=== PATIENT | male | born 1965 | race Caucasian/White ===

== ENCOUNTER → 2023-02-16 10:37 | Outpatient (CLI) | payer OTHER, SELFPAY ==
--- NOTE | ~2023-02-16 | MR_ITS ---
EXAMINATION: MR knee RT wo con DATE: 02/16/2023 11:07 INDICATION: Medial right knee pain. TECHNIQUE: Magnetic resonance imaging (MRI) of the right knee was performed without intravenous contr ast. Sequences included axial PD-weighted FS FSE, coronal PD-weighted FSE and PD-weighted FS FSE, sag ittal PD-weighted FSE, and sagittal T2-weighted FS FSE. COMPARISON: None. FINDINGS: Medial compartment: Medial meniscus is normal. Medial compartment cartilage is normal. Lateral compartment: Lateral meniscus is normal. There is cartilage surface irregularity of tibial condyle. Femoral cartil age is normal. Patellofemoral compartment: Patellar cartilage is normal. Trochlear cartilage is normal. Ligaments and tendons: The anterior and posterior cruciate ligaments are normal. Medial collateral ligament and lateral kizzy ateral ligament complex are normal. There is mild patellar tendinopathy. Fluid: There is no knee joint effusion. There is mild pes anserinus bursitis. There is edema of suprapatella r fat pad. IMPRESSION: 1. Mild chondrosis of lateral tibial condyle. 2. Mild pes anserinus bursitis. Reviewed, dictated and finalized at location E.
== END ==
PROVIDERS: PCP Physician Assistant; Visit Provider Physician Assistant
DX: M94.261 Chondromalacia, right knee (principal); M71.561 Other bursitis, not elsewhere classified, right knee; G89.29 Other chronic pain
CPT/HCPCS: 73721

== ENCOUNTER 2024-10-18 08:21 | Outpatient (CLI) | payer OTHER, SELFPAY ==
--- NOTE | ~2024-10-18 | MR_ITS ---
MRI of the left calf CLINICAL HISTORY: Pain and swelling TECHNIQUE: T1-weighted and STIR images were performed in the axial, coronal, and sagittal planes. FINDINGS: Bone marrow signals are unremarkable. No fracture or bone marrow edema seen. No evidence fo r osteomyelitis. No periosteal reaction seen. Visualized joint spaces are intact. No evidence for medial tibial stress syndrome. Visualized musculature is unremarkable. No muscle atro phy or edema. Visualized tendons are intact. Subcutaneous soft tissues are unremarkable. No soft tiss ue mass or fluid collection seen. IMPRESSION: Unremarkable exam. Reviewed, dictated and finalized at location . IMPRESSION: Unremarkable exam.
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
--- OUTSIDE RECORDS SUMMARY | 2024-10-18 08:26 | XMS_ITS | Encounter Summary ---
Author Organization [facility] Healthcare Address [address] [place] [address] Care Team Providers Care Home Designer Name Role Phone LUIS Rivera Jr., Tera Acuña Primary Care Provide r Cuco Fenton MD Unavailable Willie Deal MD Unavailable [phone] Reason for Visit * Reason Onset Date Comments Authorization/Certification 10/17/2024 Encounter Details Date Type Department Care Team (Late st Contact Info) Description 10/17/2024 Telephone [facility] Medical Group Primary Care [address] [phone] Tera Rivera Jr., PA [address] [address] Authorization/Certifica tion Social History Tobacco Use Types Packs/Day Years Used Date Smoking Tobacco: Never Smokeless Tobacco: Never AUDIT-C Answer Date Recorded Q1: How often [...] on file 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 documented in this encounter Plan of Treatment Not on file documented as of this encounter Visit Diagnoses Not on filedocumented in this encounter Care Teams Home Designer Relationship Specialty Start Date End Date Tera Rivera Jr., PA [address] [place] [address] PCP - General Family Medicine 06/04/19 Cuco Fenton MD [address] [facility] [address] Consulting Physician Pain Management 01/26/21 Willie Deal MD [address] [place] [address] Consulting Physician Family Medicine 11/03/21 documented as of this encounter
--- OUTSIDE RECORDS SUMMARY | 2024-10-18 08:26 | XMS_ITS | Encounter Summary ---
Author Organization [facility] Healthcare Address [address] [place] [address] Care Team Providers Care Special Day Class Teacher Name Role Phone LUIS Rivera Jr., Tera Acuña Primary Care Provide r Cuco Fenton MD Unavailable Willie Deal MD Unavailable Reason for Visit * Reason Onset Date Comments Medical Question/Miscellaneous 10/15/2024 Encounter Details Date Type Department Care Team ([facility] st Contact Info) Description 10/15/2024 Telephone [facility] Medical Group Primary Care [address] [phone] Tera Rivera Jr., PA [address] [address] Medical Question/Miscellaneous Social History Tobacco Use Types Packs/Day Years [...] file Legal Sex Male 9:43 AM 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 Yes-Action Needed * Telephone Encounter - Marcus Nelson - 10/15/2024 4:16 PM CDT Medical Question/Miscellaneous Caller???s Concern: Noemy with [facility] called regarding status for MRI. ASSISTANT TEACHER PRIMARY informed that its pending. Does message need to be routed? No documented in this encounter Plan of Treatment Not on file documented as of this encounter Visit Diagnoses Not on filedocumented in this encounter Care Teams Special Day Class Teacher Relationship Specialty Start Date End Date Tera Rivera Jr., PA [address] [place] [address] PCP - General Family Medicine 06/04/19 Cuco Fenton MD [address] [facility] [address] Consulting Physician Pain Management 01/26/21 Willie Deal MD [address] [place] [address] Consulting Physician Family Medicine 11/03/21 documented as of this encounter
--- OUTSIDE RECORDS SUMMARY | 2024-10-18 08:26 | XMS_ITS | Encounter Summary ---
Author Organization [facility] Healthcare Address [address] [place] [address] Care Team Providers Care Road Engineer Freight Name Role Phone LUIS Rivera Jr., Tera Acuña Primary Care Provide r Cuco Fenton MD Unavailable Willie Deal MD Unavailable [phone] Encounter Details Date Type Department Care Team (Late st Contact Info) Description 10/11/2024 Results Follow-Up [facility] Medical Group Primary Care [address] [phone] Tera Rivera Jr., PA [facility] [address] [place] [address] XR Tibia Fibula Left 2 Vw Social History Tobacco Use Types Packs/Day Years [...] on file 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 Patient states that he spoke with [facility] regarding the xray. documented in this encounter Plan of Treatment Not on file documented as of this encounter Visit Diagnoses Not on filedocumented in this encounter Care Teams Road Engineer Freight Relationship Specialty Start Date End Date Tera Rivera Jr., PA [address] [place] [address] PCP - General Family Medicine 06/04/19 Cuco Fenton MD [address] [facility] [address] Consulting Physician Pain Management 01/26/21 Willie Deal MD [address] [place] [address] Consulting Physician Family Medicine 11/03/21 documented as of this encounter
--- OUTSIDE RECORDS SUMMARY | 2024-10-18 08:26 | XMS_ITS | Encounter Summary ---
Author Organization [facility] Healthcare Address [address] [place] [address] Care Team Providers Care Die Attacher Name Role Phone LUIS Rivera Jr., Tera Acuña Primary Care Provide r Cuco Fenton MD Unavailable Willie Deal MD Unavailable Reason for Visit * Reason Onset Date Comments Referral Request 10/16/2024 Encounter Details Date Type Department Care Team ([facility] st Contact Info) Description 10/16/2024 Telephone [facility] Primary Care [address] [phone] Tera Rivera Jr., PA [facility] [address] Referral Request Social History Tobacco Use Types Packs/Day Years [...] on file 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 * Telephone Encounter - Latha Han - 10/17/2024 9:15 AM CDT Authorized and faxed * Telephone Encounter - Claudia Ievrson - 10/16/2024 1:58 PM CDT Referral Provider Name: [facility] Specialty: Physical Therapy Address: [address] [place] [address], Zip: [place] [address] Diagnosis Code/Symptom/Reason Patient is being seen: M79.662, M79.89 Date of Appointment: 10/17/2024 at 8:40 AM NPI#: [id number] Tax ID#: [id number] Is insurance in chart up to date? Magalis M[place]e Additional Comments: Caller requesting a [employer] Insurance Referral. Caller stated if can't get it by tomorrow 10/17/2024 no problem as long as it is back dated for 10/17/2024. Does message need to be routed? Yes-Action Needed documented in this encounter Plan of Treatment Not on file documented as of this encounter Visit Diagnoses Not on filedocumented in this encounter Care Teams Die Attacher Relationship Specialty Start Date End Date Tera Rivera Jr., PA [address] [place] [phone] PCP - General Family Medicine 06/04/19 Cuco Fenton MD [address] [facility] [address] Consulting Physician Pain Management 01/26/21 Willie Deal MD [address] [address] Consulting Physician Family Medicine 11/03/21 documented as of this encounter
--- OUTSIDE RECORDS SUMMARY | 2024-10-18 08:26 | XMS_ITS | Continuity of Care Document ---
Author Name [facility] Organization [facility] Care Team Providers Care Wheel Alignment Technician Name Role Phone [facility] Unavailable Unavailable Immunizations Combined list of available immunizations from the Department of Defense and [facility] facilities. Immunization Series Date Given Administered By Site Reaction Lot Number CVX Code Drug International Nurse Status Comments Source COVID-19 (Zvooq), MRNA, LNP-S, PF, 30 MCG/0.3 ML DOSE 2 2020 208 complet ed PFR; [id number]; 1 [facility] COVID-19 (Zvooq), MRNA, LNP-S, PF, 30 MCG/0.3 ML DOSE 1 2020 208 complet ed PFR; [id number]; 1 [facility] Encounters Combined list of: 1) Encounters from Department of Veterans Affairs facilities going backup to the last 18 months, not all VA inpatient encounters are included; 2) Encounters from the [facility] of [facility] facilities going backup to 280 months. Location Location Details Encounter Type Encounter Number Reason For Visit Attending Provider ADM Date DC Date Status Disposition Source [facility] Outpatient Encounter [id number] 09/14 [facility]
--- OUTSIDE RECORDS SUMMARY | 2024-10-18 08:26 | XMS_ITS | Clinical Summary ---
Author Organization [facility] Address [address] [place] [address] Care Team Providers Care Acting Manager Name Role Phone Tera Rivera Primary Care Provider [phone] Sultan Ricco Romero MD Unavailable [phone] Allergies No known active allergies Medications valsartan-hydroCHL OROthiazide (DIOVAN-HCT) 80-12.5 MG tabletIndications: Essential (primary) hypertension Take 1 tablet by mouth daily. 11/11/19 22 Active RABEprazole EC (ACIPHEX) 20 MG tablet Take 20 mg by mouth daily. 04/13/20 21 Active meloxicam (MOBIC) 15 MG tablet Take 15 mg by mouth daily. 11/12/19 22 Active rizatriptan (MAXALT-MERCHANDISING EXECUTION ASSOCIATE) 10 MG disintegrating tablet DISSOLVE ONE TABLET ON THE TONGUE NEEDED FOR HEADACHE. MAY REPEAT IN 2 HOURS IF UNRESOLVED. MAX 3 TABLETS IN 24 HOURS 07/18/19 22 Active SUMAtriptan (IMITREX) 50 MG tablet Take 1 tablet by mouth as needed. 10/04/19 22 Active rosuvastatin (CRESTOR) 20 MG tabletIndications: Coronary artery disease involving [place] coronary artery of [place] heart without angina pectoris,Hyperlipi demia, mixed Take 1 tablet (20 mg total) by mouth nightly at bedtime. 90 tablet 4 11/25/19 22 Active isosorbide mononitrate ER (IMDUR) 30 MG 24 hr tabletIndications: Chest pain, unspecified type TAKE 1 TABLET(30 MG) BY MOUTH DAILY. PLEASE MAKE AN APPOINTMENT FOR FUTURE REFILLS 30 tablet 03/24/20 22 Active Active Problems Problem Noted Date Diagnosed Date Exertional dyspnea 08/26/2021 Precordial chest pain 08/26/2021 Pure hypercholesterolemia 08/26/2021 Family History Medical History Relation Comments Colon Cancer Father Heart Disease Mother Relation Status Comments Father (Age 52) Mother (Age 63) Social History Tobacco Use Types Packs/Day Years Used Date Smoking Tobacco: Never Smokeless Tobacco: Never Alcohol Use Standard Drinks/Week Comments Yes 0 (1 standard drink = 0.6 oz pur e alcohol) beer Sex and Gender Information Value Date Recorded Sex Assigned at Not on file Legal Sex Male 7:01 PM CDT Gender Identity Not on file Sexual Orientation Not on file Last Filed Vital Signs Vital Sign Reading Time Taken Comments Blood Pressure 130/78 11/24/2021 1:02 PM CDT Pulse 71 11/24/2021 1:02 PM CDT Temperature - - Respiratory Rate - - Oxygen Saturation 97% 11/24/2021 1:02 PM CDT Inhaled Oxygen Concentration - - Weight 88.2 kg (194 lb 6.4 oz) 11/24/2021 1:02 P M CDT Height 182.9 cm (6') 11/24/2021 1:02 PM CDT Body Mass Index 26.37 11/24/2021 1:02 PM CDT Plan of Treatment Health Maintenance Due Date Last Done Comments Colorectal Cancer Screening Colonoscopy (10 Years) 1966 Annual Physical 1969 Hepatitis C 1984 DTaP, Tdap and Td Vaccines ( 1 - Tdap) 1985 Hepatitis B Vaccines (1 of 3 - 19+ 3-dose series) 1985 Pneumococcal Vaccine: 50+ Years (1 of 1 - PCV) 2016 Zoster Vaccines (1 of 2) 2016 COVID-19 Vaccine (2023-2 5 season) 2023 04/13/2021, 07/15/2020, 06/25/2020 Meningococcal B Vaccine Aged Out No l onger eligible based on patient's age to complete this topic Meningococcal Vaccine Aged Out No scotty jerome eligible based on patient's age to complete this topic RSV Immunizations Under 20 Months Aged Out No longer eligible b ased on patient's age to complete this topic Insurance Care Teams Acting Manager Relationship Specialty Start Date End Date Tera Rivera PA [address] [place] [phone] PCP - General 10/19/16 Sultan Ricco Romero MD [address] [facility] [address] [place] [address] [address] CARDIOVASCULAR DISEASE 11/05/21
--- OUTSIDE RECORDS SUMMARY | 2024-10-18 08:26 | XMS_ITS | Clinical Summary ---
Author Organization [address] Address [address] [place] [phone] Care Team Providers Care Upper Doubler Name Role Phone LUIS Rivera Jr., Robert James Primary Care Provide r Cuco Fenton MD Unavailable Willie Deal MD Unavailable Allergies No known active allergies Medications SUMAtriptan [...] needed for muscle spasms 90 tablet 2 05/05/20 25 025 Active rizatriptan AGRICULTURE MANAGER (MAXALT-AGRICULTURE MANAGER) 10 mg disintegrating tabletIndications :Chronic nonintractable headache, [...] total) by mouth daily 025 Discontinued rizatriptan AGRICULTURE MANAGER (MAXALT-AGRICULTURE MANAGER) 10 mg disintegrating tabletIndications :Chronic nonintractable headache, [...] knee 04/22/2011 11/27/2020 Knee pain 04/21/2011 11/27/2020 Encounters Date Type Department Care Team Description 10/17/2024 Telephone [facility] Primary Care [address] [place] [phone] Tera Rivera Jr., PA Authorization/Certi fication 10/16/2024 Telephone [facility] Primary Care [address] [place] [phone] Tera Rivera Jr., PA Referral Request 10/15/2024 Telephone [facility] Primary Care [address] [place] [phone] Tera Rivera Jr., PA Medical Question/Miscellane ous 10/11/2024 Results Follow-Up [facility] [address] [place] [phone] Tera Rivera Jr., PA XR Tibia Fibula Left 2 Vw 10/11/2024 Orders Only [facility] Primary Care [address] [place] [phone] Tera Rivera Jr., PA Pain and swelling of left lower leg (Primary Dx) 10/04/2024 2:45 PM CDT - 10/04/2024 11:59 PM CDT Hospital Encounter [facility] MOB 1 DIAG IMG [address] [place] [address] Pain and swelling of left lower leg Discharge Disposition: Discharge to home or self care 10/04/2024 2:30 PM CDT Office Visit [facility] [address] [place] [address] [address] [place] [phone] Tera Rivera Jr., PA Pain and swelling of left lower leg (Primary Dx) 08/20/2024 Orders Only [facility] Primary Care [address] [place] [address] [address] [place] [phone] Tera Rivera Jr., PA Chronic bilateral low back pain with right-sided sciatica 07/24/2024 Telephone [facility] [address] [address] Samanta Gutierrez RN from Last 3 Months Immunizations Immunization Administration Dates Next Due Anthrax [...] 08/20/1999 Typhoid Inactivated 08/20/1999 Yellow Fever 07/01/1998,04/20/1988 Surgical History Surgery Date Site/Laterality Comments LUMBAR FUSION L4-5 LASIK Bilateral COLONOSCOPY CARDIAC CATHETERIZATION UPPER GASTROINTESTINAL ENDOSCOPY Medical History Medical History Date Comments Headache GERD (gastroesophageal reflux disease) Hypertension Coronary artery disease 10/26/2021 HAD CARD IAC CATH Colon polyp Diverticulosis Family History Medical History Relation Name Comments Colon cancer Father Diabetes Father No Known Problems Maternal Grandfather No Known Problems Maternal Grandmother Diabetes Mother Lung cancer Mother No Known Problems Paternal Grandfather No Known Problems Paternal Grandmother Relation Name Status Comments Father Maternal Grandfather Maternal Grandmother Mother Paternal Grandfather Paternal Grandmother Social History Tobacco Use Types Packs/Day Years [...] on file Legal Sex Male 9:43 AM 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 Gender Identity Not on file Sexual Orientation Not on file Obstetrics History Last Filed Vital Signs Vital Sign Reading [...] 10/04/2024 2:24 PM CDT Plan of Treatment Health Maintenance Due Date Last Done Comments Hepatitis C Screening 1966 Hepatitis B Screening 1984 Zoster Vaccine (1 of 2) 2016 Covid-19 Vaccine ( season) 2023 03/31/2022, 04/13/2021, 07/15/2020, Additional history exists Regular Well Visit/Exam 18-64 05/23/2024 05/23/2023, 05/23/2023, 11/27/2020 Prostate Cancer Screening-PSA 05/18/2025 05/18/2023, 11/14/2020 Depression Screening 10/04/2025 10/04/2024, 05/09/2024, 05/23/2023, Additional history exists Colon Cancer Screening-Colonoscopy 06/09/2026 06/09/2023, 02/23/2021, 02/23/2021 DTaP/Tdap/Td Vaccine (2 - Td or Tdap) 02/09/2032 02/08/2022, 03/03/1999, 03/20/1989 Colon Cancer Screening-CT Colonography Discontinued 06/09/2023, 02/23/2021, 02/23/2021 Colon Cancer Screening-DNA Stool Discontinued 06/09/2023, 02/23/2021, 02/23/2021 Colon Cancer Screening-FIT Discontinued 06/09, 02/23/2021, 02/23/2021 Colon Cancer Screening-Sigmoidoscopy Discontinued 06/09/2023, 02/23/2021, 02/23/2021 Influenza Vaccine Discontinued 02/09/2024, , 04/13/2021, Additional history exists Pneumococcal vaccine <65 Aged Out No longer eligible based on patient's age to complete this topic Medical Devices Implanted Type Area Heating Systems Installer Device Identifier Shelf Expiration Date Model / Serial / Lot Fusion N/A: Spine Lumbar Angio-Seal Vip 6fr Closere Device [id number] - [id number] Implanted:Qty: 1 on 10/26/2021 by Timothy Casas MD at [facility] 07/16/2022 [id number] / / [id number] Procedures Procedure Name Priority Date/Time Associated Diagnosis Comments XR TIBIA FIBULA LEFT 2 VIEWS Schedule Routine, Read Routine (OP Routine) 10/04/2024 2:48 PM CDT Pain and swelling of left lower leg COLONOSCOPY 06/09/2023 12:11 PM PHYSICIAN 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 PSA SCREEN Routine 05/18/2023 8:41 AM PHYSICIAN 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 Annual physical exam BPH without obstruction/lower urinary [...] Chalo Pozo M.D. MF: MARICHUY Report ID: [id number] Reading Location: [id number] Procedure Note Chalo Pozo MD - 10/10/2024 [...] Chalo Pozo M.D. MF: MARICHUY Report ID: [id number] Reading Location: [id number] us LUIS Guillory Jr. IMG XR PROCEDURES Fin al Result * Colonoscopy (06/09/2023 12:11 PM PHYSICIAN 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) Anatomical Region Laterality Modality Other Narrative Procedure Note Tera Olmedo DO - 06/09/2023 12:11 PM CST [facility] Patient Name: Kunal Weeks Procedure Date: 06/09/2023 12:11 PM Date of : 1965 Admit Type: Outpatient Age: 58 Gender: Male Attending MD: Tera Olmedo D.O. Room: [facility] ENDOSCOPY ROOM 05 Note Status: Finalized Procedure: [...] On: 06/09/2023 12:11 PM Recognized by the [place] [employer] for promoting quality in endoscopy Tera Olmedo DO ENDOSCOPY PROCEDURES Fin al Result * PSA screen (05/18/2023 8:41 AM PHYSICIAN 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) PSA-Total 1.48 <=3.90 ng/mL ERWIN CARUSO Comment: [...] last revised 21. Blood 05/18/2023 8:41 AM PHYSICIAN 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 05/18/2023 2:17 PM PHYSICIAN 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 LUIS Guillory Jr. LAB BLOOD ORDERABLES Final Result ERWIN [id number] [address] Department [place] [address] from Last 3 Months or Most Recently Relevant to Health Maintenance Insurance [facility] Advance Directives For more information, please contact: [phone] * Full Code (Latest Code Status on File) Date Activated Date Inactivated Comments 10/26/2021 9:22 AM 10/26/2021 3:31 PM Care Teams Upper Doubler Relationship Specialty Start Date End Date Tera Rivera Jr., PA [address] [place] [phone] PCP - General Family Medicine 06/04/19 Cuco Fenton MD [address] [facility] [address] Consulting Physician Pain Management 01/26/21 Willie Deal MD [address] [address] Consulting Physician Family Medicine 11/03/21
--- OUTSIDE RECORDS SUMMARY | 2024-10-18 08:26 | XMS_ITS | Encounter Summary ---
Author Organization [facility] Healthcare Address [address] [place] [address] Care Team Providers Care Assistant Manager Retail Name Role Phone LUIS Rivera Jr., Tera Acuña Primary Care Provide r Cuco Fenton MD Unavailable Willie Deal MD Unavailable [phone] Encounter Details Date Type Department Care Team (Late st Contact Info) Description 07/24/[address] [facility] [address] [address] Samanta Gutierrez RN Social History Tobacco Use Types Packs/Day Years Used Date Smoking Tobacco: Never Smokeless Tobacco: Never AUDIT-C Answer Date Recorded Q1: How often do you have a drink containing alc ohol? Monthly or less 05/09/2024 Q2: How many drinks containi ng alcohol do you have on a typical day when you are drinking? 1 or 2 05/09/2024 Frequency of Binge Drinking Not on file 04/19 PHQ-2 Answer Date Recorded PHQ-2 Total Score (If total score is 3 or more points, staff should administer the PHQ-9) 0 05/09/2024 Personal Safety Answer Date Recorded Have you ever been in or are you currently in a harmful physical or emotional relationship or is someone making you feel afraid or unsafe? 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 Gender Identity Not on file Sexual Orientation Not on file documented as of this encounter Plan of Treatment Not on file documented as of this encounter Visit Diagnoses Not on filedocumented in this encounter Care Teams Assistant Manager Retail Relationship Specialty Start Date End Date Tera Rivera Jr., PA [address] [place] [phone] PCP - General Family Medicine 06/04/19 Cuco Fenton MD [address] [facility] [address] Consulting Physician Pain Management 01/26/21 Willie Deal MD [address] [place] [id number] Consulting Physician Family Medicine 11/03/21 documented as of this encounter
== END 2024-10-18 08:22 | disposition home or self-care (01) ==
LOC: CHSIMG 08:23
PROVIDERS: PCP Physician Assistant; Visit Provider Physician Assistant
DX: M79.662 Pain in left lower leg (principal); M79.89 Other specified soft tissue disorders
CPT/HCPCS: 73718

== ENCOUNTER 2025-04-13 10:25 | Outpatient (CLI) | payer OTHER, SELFPAY ==
--- NOTE | ~2025-04-13 | MR_ITS ---
EXAMINATION: MR lumbar spine wo con DATE: 04/13/2025 11:27 INDICATION: Low back pain radiating to the right hip. TECHNIQUE: Magnetic resonance imaging (MRI) of the lumbar spine was performed without intravenous contrast. COMPARISON: None FINDINGS: There is 6 degrees dextrocurvature of lumbar spine. There are changes of anterior fusion procedure at L4-L5 with interbody device and anterior plate and screws. Vertebral body heights are normal. There is mildly decreased disc height at L3-L4. The distal spinal cord signal intensity is normal. The conus medullaris is at T12. The following disc levels are specifically discussed: L1-L2: The disc does not extend beyond the endplate margin. There is mild right and moderate left facet joint osteoarthritis. There is no neural foraminal stenosis. There is no central canal stenosis. L2-L3: The disc does not extend beyond the endplate margin. There is severe bilateral facet joint osteoarthritis. There is no neural foraminal stenosis. There is no central canal stenosis. L3-L4: The disc is bulging and has an annular fissure. There is severe bilateral facet joint osteoarthritis. There is mild bilateral neural foraminal stenosis. There is mild central canal stenosis. L4-L5: There is moderate bilateral facet joint osteoarthritis. There is mild bilateral neural foraminal stenosis. There is mild central canal stenosis. L5-S1: The disc does not extend beyond the endplate margin. There is severe bilateral facet joint osteoarthritis. There is no neural foraminal stenosis. There is no central canal stenosis. IMPRESSION: 1. Mild lumbar spondylosis. 2. Anterior fusion procedure at L4-L5. Reviewed, dictated and finalized at location E. OPERATION MANAGER
== END 2025-04-13 10:26 | disposition home or self-care (01) ==
PROVIDERS: PCP Physician Assistant; Visit Provider Nurse Practitioner Family
DX: M25.559 Pain in unspecified hip (principal); M43.26 Fusion of spine, lumbar region; M46.1 Sacroiliitis, not elsewhere classified; M54.16 Radiculopathy, lumbar region; M54.59 Other low back pain; M43.06 Spondylolysis, lumbar region; Z98.1 Arthrodesis status
CPT/HCPCS: 72148